=== PATIENT | female | born 1985 | race Caucasian/White ===

== ENCOUNTER 2018-01-25 14:55 | Outpatient (CLI) | payer OTHER, BC ==
[~2018-01-25 14:55] MED LIST: CETI-102 PO; MONT10TA21 PO
== END 2018-01-25 23:59 | disposition home or self-care (01) ==
LOC: LAB 14:55
PROVIDERS: ATTEND Otolaryngology
DX: J30.0 Vasomotor rhinitis (principal)
CPT/HCPCS: 36415